=== PATIENT | male | born 1990 | race Caucasian/White ===

== ENCOUNTER 2022-09-15 23:05 | Emergency (ER) | payer OTHER ==
--- NOTE | 2022-09-15 23:30 | NUR ---
CALLED TO TRIAGE, NO ANSWER
--- NOTE | 2022-09-15 23:45 | NUR ---
CALLED TO TRIAGE, NO ANSWER
--- NOTE | 2022-09-16 | NUR ---
CALLED TO TRIAGE, NO ANSWER. PT LWBS
== END 2022-09-16 | disposition left against medical advice (07) ==
LOC: MED 23:05
DX: Z53.21 Procedure and treatment not carried out due to patient leaving prior to being seen by health care provider (principal)